=== PATIENT | female | born 1970 | race African-American/Black ===

== ENCOUNTER 2019-04-24 17:21 | Emergency (ER) | payer BC ==
[~2019-04-24] VITALS: Ht 170.2 cm; Wt 92.1 kg
[2019-04-24 17:28] VITALS: BP 145/75
[2019-04-24] MEDS ORDERED: predniSONE 10 MG TABLET PO ONE (18:00)
[2019-04-24] MEDS ORDERED: diphenhydrAMINE HCL 50 MG CAPSULE PO ONE (18:00)
[2019-04-24] MEDS ORDERED: LORAZEPAM 1 MG TABLET PO ONE (18:00)
[2019-04-24] MEDS ORDERED: FAMOTIDINE (20 MG) 20 MG TABLET PO ONE (18:00)
[2019-04-24] MEDS ORDERED: FAMOTIDINE (20 MG) 20 MG TABLET ONE (18:17)
[2019-04-24] MEDS ORDERED: diphenhydrAMINE HCL 50 MG CAPSULE ONE (18:17)
[2019-04-24] MEDS ORDERED: LORAZEPAM 1 MG TABLET ONE (18:17)
[2019-04-24] MEDS ORDERED: predniSONE 20 MG TABLET ONE (18:18)
== END 2019-04-24 19:40 | disposition home or self-care (01) ==
LOC: ER 17:25
DX: T78.40XA Allergy, unspecified, initial encounter (principal); L03.114 Cellulitis of left upper limb; L03.113 Cellulitis of right upper limb; X58.XXXA Exposure to other specified factors, initial encounter
CPT/HCPCS: 71045; 93005; 99284; J7512; Q0163